=== PATIENT | female | born 1995 | race Hispanic/Latino ===

== ENCOUNTER 2017-07-20 17:29 | Emergency (ER) | payer OTHER ==
[~2017-07-20] VITALS: Ht 162.6 cm; Wt 127.0 kg
[2017-07-20 18:51] VITALS: BP 129/67
== END 2017-07-20 18:50 | disposition home or self-care (01) ==
LOC: ER 17:29
DX: J30.9 Allergic rhinitis, unspecified (principal)
CPT/HCPCS: 99282